=== PATIENT | male | born 1960 | race Caucasian/White ===

== ENCOUNTER 2018-05-15 04:12 | Emergency (ER) ==
[2018-05-15 04:20] VITALS: BP 138/83; BMI 31.6
[2018-05-15 04:41] VITALS: TEMP 96.8
--- NOTE | 2018-05-15 05:26 | CT ---
EXAM: CT brain without contrast HISTORY: Dizziness TECHNIQUE: CT of the brain without intravenous contrast FINDINGS: There is no acute hemorrhage midline shift or mass effect. No hydrocephalus or abnormal e xtra-axial fluid collection. No significant parenchymal attenuation abnormality. The bony cranium a ppears normal. The visualized paranasal sinuses are clear. Soft tissues without significant abnormal ity. IMPRESSION: 1. CT of the brain within normal limits.
--- NOTE | 2018-05-15 05:26 | DI ---
EXAM: Chest, one-view HISTORY: Dizziness FINDINGS: Cardiac and mediastinal contours are normal. Pulmonary vasculature is normal. Lungs are clear. Bony thorax is unremarkable. IMPRESSION: Within normal limits
--- NOTE | 2018-05-15 05:47 | ED.PDOC ---
General ED Provider: Dr. CLAIR LEPE-ER Chief Complaint: Dizziness Stated Complaint: i feel like everything is spinning and dizzy---i recently had a cold Time Seen by Physician: 04:15 Mode of Arrival: Walk-In Information Source: Patient Exam Limitations: No limitations Primary Care Provider: NURY HAYES Nursing and Triage Documentation Reviewed and Agree: Yes Does patient meet sepsis criteria?: No System Inflammatory Response Syndrome: Not Applicable Sepsis Protocol: For patient's 13 years and over: Temp is 96.8 and below OR 101 and greater Pulse >90 BPM Resp >20/minute Acutely Altered Mental Status Are patient's symptoms suggestive of a new infection, such as: -Pneumonia -Skin, Soft Tissue -Endocarditis -UTI -Bone, Joint Infection -Implantable Device -Acute Abdominal Infection -Wound Infection -Meningitis -Blood Stream Catheter Infection -Unknown Neurological Complaint Exam - Dizziness Complaint/Exam Last Known Well: yesterday Onset: Gradual Symptoms Are: Still present Initial Severity: Mild Current Severity: Mild Character: Reports: Head spinning, Room spinning, Weak Aggravating: Reports: Change in head position Alleviating: Reports: Closing eyes Associated Signs and Symptoms: Denies: Nausea, Vomiting, Diaphoresis, Tinnitus, Chest pain, Short of air JVD Present: No Carotid Bruit Present: No Glascow Coma Scale (see protocol): 15 Nystagmus Present: No Gag Reflex Present: Yes Meningeal Signs Positive: No Focal Weakness: Present: None Focal Sensory Loss: Present: None Gait: Normal Romberg Test Positive: No Babinski Sign: Negative Right, Negative Left Heel to Toe Normal: No [place]-Hallpike Test Positive: No Differential Diagnoses: BPPV, Labyrinthitis Quality Indicator For Non-Traumatic Chest Pain/Syncope: EKG Performed Review of Systems - Review Of Systems Constitutional: Reports: No symptoms Eyes: Reports: No symptoms Ears, Nose, Mouth, Throat: Reports: No symptoms Respiratory: Reports: No symptoms Cardiac: Reports: No symptoms GI: Reports: No symptoms : Reports: No symptoms Musculoskeletal: Reports: No symptoms Skin: Reports: No symptoms Neurological: Reports: Weakness, Other Endocrine: Reports: No symptoms Hematologic/Lymphatic: Reports: No symptoms All Other Systems: Reviewed and Negative Past Medical History - Past Medical History Previously Healthy: Yes Endocrine: Reports: Unknown Cardiovascular: Reports: Unknown Respiratory: Reports: Unknown Hematological: Reports: Unknown Gastrointestinal: Reports: Unknown Genitourinary: Reports: Unknown Neuro/Psych: Reports: Unknown Musculoskeletal: Reports: Unknown Cancer: Reports: Unknown - Surgical History General Surgical History: Reports: Unknown - Family History Family History: Reports: Unknown - Social History Smoking Status: Never smoker Hx Substance Use: No Alcohol Screening: None - Immunizations Tetanus Shot up to Date: No Physical Exam - Physical Exam Appearance: Well-appearing, No pain distress, Well-nourished Eyes: JENNIFER, EOMI, Conjunctiva clear ENT: Ears normal, Nose normal, Oropharynx normal Neck: Supple Respiratory: Airway patent, Breath sounds clear, Breath sounds equal, Respirations nonlabored Cardiovascular: RRR, Pulses normal, No rub, No murmur GI/: Soft, Nontender, No masses, Bowel sounds normal, No Organomegaly Musculoskeletal: Normal strength, ROM intact, No edema, No calf tenderness Skin: Warm, Dry, Normal color Neurological: Sensation intact Psychiatric: Affect appropriate, Mood appropriate, Anxious Interpretation - Radiology Interpretation Radiology Interpretation By: Radiologist Radiology Results: Negative Exam Interpreted: CT Scan - EKG Interpretation Time of EKG #1: 05:48 Rate: Singh Rhythm: Sinus Ectopy: None [place]: NL ST Segment: Normal Interpretation: sinus singh Re-Evaluation - Re-Evaluation Time of Re-Evaluation: 05:48 Status: Improved Vital Signs Stable: Yes Pain Level: 0 Appearance: NAD Lungs: Clear Skin: Warm and Dry Neuro: Alert and Oriented X3 CV: RRR Critical Care Note - Critical Care Note Total Time (mins): 0 Course - Course Hematology/Chemistry: 05/15/18 04:40 05/15/18 04:40 Orders, Labs, Meds: Lab Review 05/15/18 05/15/18 05/15/18 04:30 04:30 04:40 WBC 6.06 RBC 5.61 Hgb 16.1 Hct 47.1 MCV 84.0 MCH 28.7 MCHC 34.2 RDW Coeff of [place] 13.4 Plt Count 292 Immature Gran % (Auto) 0.7 Neut % (Auto) 39.3 Lymph % (Auto) 45.0 Robertson % (Auto) 8.7 Eos % (Auto) 5.1 Baso % (Auto) 1.2 Immature Gran # (Auto) 0.0 Neut # (Auto) 2.4 Lymph # (Auto) 2.7 Robertson # (Auto) 0.5 Eos # (Auto) 0.3 Baso # (Auto) 0.1 D-Dimer (Manual) Sodium Potassium Chloride Carbon Dioxide Anion Gap BUN Creatinine Estimated GFR (MDRD) BUN/Creatinine Ratio Glucose Calcium Total Bilirubin AST ALT Alkaline Phosphatase Total Creatine Kinase Troponin I NT-Pro-B Natriuret Pep Total Protein Albumin Globulin Albumin/Globulin Ratio TSH Free T4 Urine Color Yellow Urine Clarity Clear Urine pH 5.5 Ur Specific [place] >=1.030 Urine Protein Negative Urine Glucose (UA) Negative Urine Ketones Negative Urine Blood Negative Urine Nitrite Negative Urine Bilirubin Negative Urine Urobilinogen 0.2 Ur Leukocyte Esterase Negative Urine Opiates Screen Negative Ur Oxycodone Screen Negative Urine Methadone Screen Negative Ur Propoxyphene Screen Negative Ur Barbiturates Screen Negative U Tricyclic Antidepress Negative Ur Phencyclidine Scrn Negative Ur Amphetamine Screen Negative U Methamphetamines Scrn Negative U Benzodiazepines Scrn Negative Urine Cocaine Screen Negative U Cannabinoids Screen Negative 05/15/18 05/15/18 05/15/18 04:40 04:40 04:40 WBC RBC Hgb Hct MCV MCH MCHC RDW Coeff of [place] Plt Count Immature Gran % (Auto) Neut % (Auto) Lymph % (Auto) Robertson % (Auto) Eos % (Auto) Baso % (Auto) Immature Gran # (Auto) Neut # (Auto) Lymph # (Auto) Robertson # (Auto) Eos # (Auto) Baso # (Auto) D-Dimer (Manual) 362.39 Sodium 137.2 Potassium 3.86 Chloride 103.4 Carbon Dioxide 25.8 Anion Gap 11.86 BUN 15.1 Creatinine 0.96 Estimated GFR (MDRD) 81.00 BUN/Creatinine Ratio 15.72 Glucose 145.8 H Calcium 8.42 Total Bilirubin 0.59 AST 29.0 ALT 31.8 Alkaline Phosphatase 63.2 Total Creatine Kinase 98.6 Troponin I < 0.012 NT-Pro-B Natriuret Pep 54.800 Total Protein 6.45 Albumin 3.73 Globulin 2.72 Albumin/Globulin Ratio 1.37 TSH 1.070 Free T4 0.94 Urine Color Urine Clarity Urine pH Ur Specific [place] Urine Protein Urine Glucose (UA) Urine Ketones Urine Blood Urine Nitrite Urine Bilirubin Urine Urobilinogen Ur Leukocyte Esterase Urine Opiates Screen Ur Oxycodone Screen Urine Methadone Screen Ur Propoxyphene Screen Ur Barbiturates Screen U Tricyclic Antidepress Ur Phencyclidine Scrn Ur Amphetamine Screen U Methamphetamines Scrn U Benzodiazepines Scrn Urine Cocaine Screen U Cannabinoids Screen Orders Category Date Time Status EKG-(ED ONLY) Stat CARDIO 05/15/18 04:23 Completed Human Resources Compensation Analyst [ED CORRECTION OFFICER HEAD APPLIED] .ONCE EMERGENCY 05/15/18 04:24 Active ED CORRECTION OFFICER HEAD APPLIED .ONCE EMERGENCY 05/15/18 04:24 Active CBC W/ AUTO DIFF Stat LAB 05/15/18 04:40 Completed COMPREHENSIVE METABOLIC PANEL Stat LAB 05/15/18 04:40 Completed CREATINE KINASE Stat LAB 05/15/18 04:40 Completed D-DIMER Stat LAB 05/15/18 04:40 Completed FREE T4 (FREE THYROXINE) Stat LAB 05/15/18 04:40 Completed NT-PROBNP Stat LAB 05/15/18 04:40 Completed THYROID STIMULATING HORMONE Stat LAB 05/15/18 04:40 Completed TROPONIN I Stat LAB 05/15/18 04:40 Completed URINALYSIS C & S IF INDICATED Stat LAB 05/15/18 04:30 Completed URINE DRUG SCREEN (RAPID FOR ED) [DRUG SCREEN, URINE, LAB 05/15/18 04:30 Completed RAPID] Stat CT HEAD W/O CONTRAST Stat RADS 05/15/18 04:26 Completed CXR [CHEST, 1V AP ONLY] Stat RADS 05/15/18 04:26 Completed Vital Signs: Temp Pulse Resp BP Pulse Ox 05/15/18 04:14 96.8 F L 71 18 138/83 98 Departure - Departure Time of Disposition: 05:48 Disposition: HOME SELF-CARE Discharge Problem: Vertigo Instructions: Vertigo (ED), Benign Paroxysmal Positional Vertigo (ED) Condition: Good Pt referred to PMD for follow-up: Yes IPMP verified?: No Additional Instructions: antivert 25mg tid for dizziness#30---no climbing or driving--f/u with pcp in 1- 2 days Allergies/Adverse Reactions: Allergies No Known Drug Allergies Adverse Reaction (Verified 05/15/18 04:21) Home Medications: Ambulatory Orders 1 [No Reported Medications] 05/15/18 Disposition Discussed With: Patient
[2018-05-15] MEDS ORDERED: ANTIVERT PO STA (05:50)
== END 2018-05-15 06:01 | disposition home or self-care (01) ==
LOC: ED 04:12
DX: R42 Dizziness and giddiness (principal); R53.1 Weakness; F41.9 Anxiety disorder, unspecified
CPT/HCPCS: 36415; 80053; 80306; 81001; 82550; 83880; 84439; 84443; 84484; 85025; 85379; 93005; 93010; 99283